=== PATIENT | male | born 1955 | race African-American/Black ===

== ENCOUNTER 2016-08-08 19:03 | Emergency (ER) | payer MEDICARE, OTHER ==
[~2016-08-08] VITALS: Ht 177.8 cm; Wt 71.7 kg
[2016-08-08] MEDS ORDERED: AZITHROMYCIN 250 MG TABLET PO ONE (20:45)
[2016-08-08] MEDS ORDERED: CEFTRIAXONE 500 MG VIAL IM ONE (20:45)
[2016-08-08] MEDS ORDERED: LIDOCAINE HCL 1% 20 ML VIAL ONE (21:40)
[2016-08-08] MEDS ORDERED: CEFTRIAXONE 500 MG VIAL ONE (21:40)
[2016-08-08] MEDS ORDERED: AZITHROMYCIN 250 MG TABLET ONE (21:40)
[2016-08-08 21:58] LABS: *BILIRUBIN,URIN NEGATIVE (NEGATIVE); *BLOOD, URINE NEGATIVE (NEGATIVE); *CLARITY,URINE CLEAR (CLEAR); *COLOR,URINE YELLOW (YELLOW); *KETONES,URINE NEGATIVE (NEGATIVE); *PROTEIN,URINE TRACE (NEGATIVE); LEUKOCYTE ESTERASE ,URINE NEGATIVE (NEGATIVE); NITRITE, URINE NEGATIVE (NEGATIVE); UGLUCOSE NEGATIVE (NEGATIVE)
[2016-08-08 22:06] LABS: BACTERIA,URINE NONE SEEN /HPF (NONE SEEN); RBC,URINE 0-3 /HPF (0-3); SQUAMOUS EPITHELIAL CELL,UR FEW /HPF (NONE SEEN); WBC,URINE 0-3 /HPF (0-3)
[2016-08-08 23:00] VITALS: BP 128/78
--- NOTE | 2016-08-08 23:00 | NUR ---
Pt dc;ed home w/ aci , pt given script for levaquin po.
== END 2016-08-08 23:02 | disposition home or self-care (01) ==
LOC: ER 19:12
DX: N45.1 Epididymitis (principal)
CPT/HCPCS: 76870; 87491; A4663; J0696; J3490; Q0144

== ENCOUNTER 2016-08-17 05:28 | Emergency (ER) | payer MEDICARE, OTHER ==
[~2016-08-17] VITALS: Ht 177.8 cm; Wt 72.6 kg
[2016-08-17] MEDS: IBUPROFEN 600 MG TABLET PO ONE (05:59)
[2016-08-17] MEDS: TDAP DIPH,PERTUSS,TET VAC/PF 0.5 ML DISP.SYRIN IM ONE (06:05)
[2016-08-17] MEDS ORDERED: TDAP DIPH,PERTUSS,TET VAC/PF 0.5 ML DISP.SYRIN IM ONE (06:08)
[2016-08-17] MEDS ORDERED: IBUPROFEN 600 MG TABLET ONE (06:08)
--- NOTE | 2016-08-17 07:09 | NUR ---
Patient discharged to home in stable conditon. Written and verbal after care instructions given. Patient verbalizes understanding of instructions.
[2016-08-17 07:13] VITALS: BP 135/85
== END 2016-08-17 07:09 | disposition home or self-care (01) ==
LOC: ER 05:33
DX: S60.511A Abrasion of right hand, initial encounter (principal); L03.113 Cellulitis of right upper limb; F90.9 Attention-deficit hyperactivity disorder, unspecified type; F10.10 Alcohol abuse, uncomplicated; F17.200 Nicotine dependence, unspecified, uncomplicated; X58.XXXA Exposure to other specified factors, initial encounter; Y93.89 Activity, other specified; Y92.9 Unspecified place or not applicable; Y99.9 Unspecified external cause status
CPT/HCPCS: 90715; A4663

== ENCOUNTER 2016-08-28 08:34 | Emergency (ER) | payer MEDICARE, OTHER ==
[~2016-08-28] VITALS: Ht 180.3 cm; Wt 81.6 kg
--- NOTE | 2016-08-28 09:10 | NUR ---
DR JOHNSON AT THE BEDSIDE FOR EVAL AND EXAM.
[2016-08-28 09:22] VITALS: BP 154/94
--- NOTE | 2016-08-28 09:28 | NUR ---
Patient discharged to home in stable conditon. Written and verbal after care instructions given. Patient verbalizes understanding of instructions.
== END 2016-08-28 09:28 | disposition home or self-care (01) ==
LOC: ER 08:34
DX: L03.113 Cellulitis of right upper limb (principal); R30.0 Dysuria; F17.200 Nicotine dependence, unspecified, uncomplicated
CPT/HCPCS: 99283; A4663

== ENCOUNTER 2016-09-07 09:42 | Emergency (ER) | payer MEDICARE, OTHER ==
[~2016-09-07] VITALS: Ht 177.8 cm; Wt 71.7 kg
[2016-09-07] MEDS ORDERED: ALPRAZOLAM (09:53)
[2016-09-07] MEDS ORDERED: OXYC30TA2 PO (09:53)
[2016-09-07] MEDS ORDERED: SILD100T PO (09:53)
[2016-09-07] MEDS ORDERED: SULF1TAB48 PO (09:54)
[2016-09-07 10:38] VITALS: BP 120/66
--- NOTE | 2016-09-07 10:40 | NUR ---
Patient discharged to home in stable conditon. Written and verbal after care instructions given. Patient verbalizes understanding of instructions.
== END 2016-09-07 10:41 | disposition home or self-care (01) ==
LOC: ER 09:42
DX: N50.819 Testicular pain, unspecified (principal); I10 Essential (primary) hypertension; F17.200 Nicotine dependence, unspecified, uncomplicated
CPT/HCPCS: A4663

== ENCOUNTER 2017-07-23 04:15 | Emergency (ER) | payer MEDICARE, OTHER ==
[~2017-07-23] VITALS: Ht 177.8 cm; Wt 72.6 kg
[~2017-07-23 04:15] MED LIST: ALPRAZOLAM; OXYC30TA2 PO; SILD100T PO; SULF1TAB48 PO
--- NOTE | 2017-07-23 04:30 | NUR ---
PT C/O TESTICULAR PAIN, AND THAT HIS UROLOGIST DOESNT KNOW WHY. UNRELIABLE HISTORIAN, HIS IS UNWILLING TO PROVIDE FURTHER DETAILS.
--- NOTE | 2017-07-23 04:36 | NUR ---
DR JOHNSON, NIKITA MD AT BEDSIDE FOR MSE.
--- NOTE | 2017-07-23 04:45 | NUR ---
PT SLEEPING AND DIFFICULT TO WAKE. STATES HE IS UNABLE TO PROVIDE URINE SAMPLE.
--- NOTE | 2017-07-23 05:01 | NUR ---
RADIOLOGY CALLED FOR [facility].
[2017-07-23 05:13] LABS: *BILIRUBIN,URIN NEGATIVE (NEGATIVE); *BLOOD, URINE NEGATIVE (NEGATIVE); *CLARITY,URINE CLEAR (CLEAR); *COLOR,URINE YELLOW (YELLOW); *KETONES,URINE NEGATIVE (NEGATIVE); *PROTEIN,URINE TRACE (NEGATIVE); *UROBILINOGEN,URINE 0.2 E.U./dl (NORMAL); LEUKOCYTE ESTERASE ,URINE NEGATIVE (NEGATIVE); NITRITE, URINE NEGATIVE (NEGATIVE); UGLUCOSE NEGATIVE (NEGATIVE)
[2017-07-23 05:21] LABS: BACTERIA,URINE NONE SEEN /HPF (NONE SEEN); RBC,URINE NONE SEEN /HPF (0-3); SQUAMOUS EPITHELIAL CELL,UR NONE SEEN /HPF (NONE SEEN); WBC,URINE 0-3 /HPF (0-3)
--- NOTE | 2017-07-23 06:15 | NUR ---
US AT PT BEDSIDE. PT SLEEPING THROUGH US
[2017-07-23] MEDS ORDERED: AZITHROMYCIN 500 MG VIAL IV ONE (06:37)
[2017-07-23] MEDS ORDERED: AZITHROMYCIN 250 MG TABLET ONE (06:39)
[2017-07-23] MEDS ORDERED: CEFTRIAXONE 500 MG VIAL ONE (06:40)
[2017-07-23] MEDS ORDERED: AZITHROMYCIN 250 MG TABLET PO ONE (06:45)
[2017-07-23] MEDS ORDERED: CEFTRIAXONE 500 MG VIAL IM ONE (06:45)
--- NOTE | 2017-07-23 07:02 | NUR ---
Patient discharged to home in stable conditon. Written and verbal after care instructions given. Patient verbalizes understanding of instructions. PT ambulated from ER w/ steady gait. No distress noted. Pt took all personal belongings.
[2017-07-23 07:03] VITALS: BP 156/110
[2017-07-25 08:11] LABS: *GC NAA Negative (Negative); *TRIC.VAG. NAA Negative (Negative)
== END 2017-07-23 07:04 | disposition home or self-care (01) ==
LOC: ER 04:18
DX: N50.819 Testicular pain, unspecified (principal); I10 Essential (primary) hypertension; F17.210 Nicotine dependence, cigarettes, uncomplicated; Z79.891 Long term (current) use of opiate analgesic; Z79.899 Other long term (current) drug therapy
CPT/HCPCS: 76870; 87491; A4663; J0456; J0696; J3490; Q0144

== ENCOUNTER 2017-07-31 03:45 | Emergency (ER) | payer MEDICARE, OTHER ==
[~2017-07-31] VITALS: Ht 177.8 cm; Wt 72.6 kg
--- NOTE | 2017-07-31 04:35 | NUR ---
PT IN BED. MD SHAH AT BEDSIDE.
--- NOTE | 2017-07-31 04:51 | NUR ---
PT IN BED. PT WAS GIVEN URINAL TO OBTAIN A SAMPLE FOR LAB. PT IS RESTING QUIETLY WITH EYES CLOSED. EMPTY URINAL IS IN BED WITH PT.
--- NOTE | 2017-07-31 06:07 | NUR ---
US AT BEDSIDE
[2017-07-31 06:54] LABS: *BILIRUBIN,URIN NEGATIVE (NEGATIVE); *BLOOD, URINE NEGATIVE (NEGATIVE); *CLARITY,URINE CLEAR (CLEAR); *COLOR,URINE YELLOW (YELLOW); *KETONES,URINE NEGATIVE (NEGATIVE); *PROTEIN,URINE TRACE (NEGATIVE); *UROBILINOGEN,URINE 0.2 E.U./dl (NORMAL); LEUKOCYTE ESTERASE ,URINE NEGATIVE (NEGATIVE); NITRITE, URINE NEGATIVE (NEGATIVE); PH,URINE 6.5 (5.0-8.0); UGLUCOSE NEGATIVE (NEGATIVE)
--- NOTE | 2017-07-31 07:01 | NUR ---
REPORT GIVEN TO DEBBIE FUENTES.
[2017-07-31 07:07] LABS: RBC,URINE 0-3 /HPF (0-3)
[2017-07-31 07:08] LABS: BACTERIA,URINE FEW /HPF (NONE SEEN); MUCUS,URINE FEW /LPF (0-FEW); SQUAMOUS EPITHELIAL CELL,UR FEW /HPF (NONE SEEN)
--- NOTE | 2017-07-31 07:33 | NUR ---
[facility] PROVIDEDFOR [facility].
[2017-07-31 07:37] VITALS: BP 148/101
--- NOTE | 2017-07-31 07:44 | NUR ---
Patient discharged to home in stable conditon. Written and verbal after care instructions given. Patient verbalizes understanding of instructions. Patient denies any distress and walks in steady gait.
== END 2017-07-31 07:45 | disposition home or self-care (01) ==
LOC: ER 03:49
DX: N50.819 Testicular pain, unspecified (principal); N43.3 Hydrocele, unspecified; I10 Essential (primary) hypertension; F17.210 Nicotine dependence, cigarettes, uncomplicated; Z79.891 Long term (current) use of opiate analgesic; Z79.899 Other long term (current) drug therapy
CPT/HCPCS: 76870; 87086; A4663

== ENCOUNTER 2017-10-25 01:33 | Emergency (ER) | payer MEDICARE, OTHER ==
[~2017-10-25] VITALS: Ht 177.8 cm; Wt 72.6 kg
--- NOTE | 2017-10-25 02:07 | NUR ---
Dr. Henriquez at bedside for MSE.
--- NOTE | 2017-10-25 02:37 | NUR ---
Pt out of ER for CT.
--- NOTE | 2017-10-25 02:46 | NUR ---
Pt back to ER from CT.
--- NOTE | 2017-10-25 03:37 | NUR ---
Patient discharged to home in stable conditon. Written and verbal after care instructions given. Patient verbalizes understanding of instructions. Pt ambulated out of ER with steady gait, no acute signs of distress, VSS, all belongings taken.
[2017-10-25 03:58] VITALS: BP 176/106
== END 2017-10-25 03:40 | disposition home or self-care (01) ==
LOC: ER 01:37
DX: S00.03XA Contusion of scalp, initial encounter (principal); I10 Essential (primary) hypertension; Z79.891 Long term (current) use of opiate analgesic; Z79.01 Long term (current) use of anticoagulants; Z79.899 Other long term (current) drug therapy; Y04.0XXA Assault by unarmed brawl or fight, initial encounter; Y93.89 Activity, other specified; Y92.89 Other specified places as the place of occurrence of the external cause; Y99.8 Other external cause status
CPT/HCPCS: 70450; 99284; A4663

== ENCOUNTER 2017-11-07 17:03 | Inpatient (IN) | payer MEDICARE, OTHER ==
[~2017-11-07] VITALS: Ht 177.8 cm; Wt 78.2 kg
[2017-11-07] MEDS ORDERED: IV NORMAL SALINE 1000 ML BAG IV ONE (17:15)
[2017-11-07 17:26] LABS: BASOPHILS % (AUTO) 0.7 % (0.0-2.0); EOSINOPHILS # (AUTO) 0.1 K/uL (0.0-0.7); EOSINOPHILS % (AUTO) 1.3 % (0.0-7.0); HEMATOCRIT 43.6 % (36.7-47.1); HEMOGLOBIN 14.4 g/dL (12.5-16.3); LYMPHOCYTES # (AUTO) 1.5 K/uL (20.0-40.0); LYMPHOCYTES % (AUTO) 36.9 % (20.5-51.5); MEAN CORPUSCULAR HEMOGLOBIN 30.5 uug (23.8-33.4); MEAN CORPUSCULAR HGB CONC 33 g/dL (32.5-36.3); MEAN CORPUSCULAR VOLUME 92.2 fL (73.0-96.2); MONOCYTES # (AUTO) 0.4 K/uL (2.0-10.0); MONOCYTES % (AUTO) 8.9 % (0.0-11.0); NEUTROPHILS # (AUTO) 2.1 K/uL (1.8-8.9); NEUTROPHILS % (AUTO) 52.2 % (38.5-71.5); PLATELET COUNT (AUTO) 279 K/uL (152-348); RED BLOOD CELL COUNT(AUTO) 4.73 MIL/uL (4.06-5.63)
--- NOTE | 2017-11-07 17:27 | NUR ---
PT IS IN ROOM #1B. DR JOHNSON EVALUATED THE PT.
[2017-11-07 17:34] LABS: CREATININE 1.2 mg/dL (0.6-1.3); POTASSIUM 3.4 mmol/L (3.5-5.1)
[2017-11-07 17:39] LABS: BILIRUBIN,DIRECT 0.1 mg/dL (0.0-0.2); BILIRUBIN,TOTAL 0.5 mg/dL (0.2-1.0); TOTAL PROTEIN, SERUM 6.8 g/dL (6.4-8.2)
[2017-11-07] MEDS ORDERED: ALPR2TAB7 PO (18:02)
[2017-11-07] MEDS ORDERED: ACETAMINOPHEN 325 MG TABLET PO PRN (18:30)
[2017-11-07] MEDS ORDERED: MORPHINE SULFATE 2 MG/1 ML DISP.SYRIN IV PRN (18:30)
[2017-11-07] MEDS ORDERED: POTASSIUM CHLORIDE 20 MEQ TAB.PRT.SR PO ONE (18:30)
[2017-11-07] MEDS ORDERED: Z GUARD REMEDY PASTE 57 GM TUBE TOP PRN (18:30)
[2017-11-07] MEDS ORDERED: MAGNESIUM HYDROXIDE 30 ML LIQUID UDC PO PRN (18:30)
[2017-11-07] MEDS ORDERED: HYDROCODONE/APAP 5-325MG TABLET PO PRN (18:30)
[2017-11-07] MEDS ORDERED: ONDANSETRON 4 MG/2 ML VIAL IV PRN (18:30)
--- NOTE | 2017-11-07 19:02 | NUR ---
REPORT GIVEN TO CURRICULUM COORDINATOR RN.
--- NOTE | 2017-11-07 19:14 | NUR ---
ASSUMED CARE OF PATIENT. PATIENT IN BED, NO ACUTE DISTRESS NOTED. AWAITING INPATIENT ADMISSION AT THIS TIME. VSS. US AT BEDSIDE.
--- NOTE | 2017-11-07 19:26 | NUR ---
Report given to Bhargavi LEWIS on telemetry
--- NOTE | 2017-11-07 19:28 | NUR ---
Pt. admitted to Telemetry , under care of Dr. Rhodes. Dx: Syncope Belongs List completed
--- NOTE | 2017-11-07 19:45 | NUR ---
PT ARRIVED ON TELE FLOOR VIA GURNEY. NO COMPLAINTS AT THIS TIME. PT PLACED ON TELE MONITORING- NSR. ORIENTED TO UNIT AND USE OF CALL LIGHT. BELONGING LIST COMPLETED. V/S WNL.
[2017-11-07 20:00] VITALS: BP 130/90
[2017-11-07 23:51] VITALS: BP 141/87
--- NOTE | 2017-11-08 00:22 | NUR ---
PT RESTING IN BED. NO PAIN, C/P, SOB, N/V. PT NSR ON TELE MONITORING.
[2017-11-08 03:48] VITALS: BP 142/96
--- NOTE | 2017-11-08 04:21 | NUR ---
PT ASLEEP IN BED. NO COMPLAINTS AT THIS TIME. NSR ON TELE MONITORING.
[2017-11-08 06:32] LABS: BASOPHILS % (AUTO) 0.7 % (0.0-2.0); EOSINOPHILS # (AUTO) 0.2 K/uL (0.0-0.7); EOSINOPHILS % (AUTO) 3.5 % (0.0-7.0); HEMATOCRIT 43.2 % (36.7-47.1); HEMOGLOBIN 14.2 g/dL (12.5-16.3); LYMPHOCYTES # (AUTO) 1.7 K/uL (20.0-40.0); LYMPHOCYTES % (AUTO) 38.8 % (20.5-51.5); MEAN CORPUSCULAR HEMOGLOBIN 30.4 uug (23.8-33.4); MEAN CORPUSCULAR HGB CONC 33 g/dL (32.5-36.3); MEAN CORPUSCULAR VOLUME 92.6 fL (73.0-96.2); MONOCYTES # (AUTO) 0.5 K/uL (2.0-10.0); MONOCYTES % (AUTO) 11.2 % (0.0-11.0); NEUTROPHILS % (AUTO) 45.8 % (38.5-71.5); PLATELET COUNT (AUTO) 253 K/uL (152-348); RED BLOOD CELL COUNT(AUTO) 4.66 MIL/uL (4.06-5.63); WHITE BLOOD COUNT (AUTO) 4.3 K/uL (3.6-10.2)
[2017-11-08 06:46] LABS: CREATININE 1.1 mg/dL (0.6-1.3); MAGNESIUM 2.2 mg/dL (1.8-2.4); PHOSPHOROUS 3.9 mg/dL (2.5-4.9); POTASSIUM 4.6 mmol/L (3.5-5.1)
[2017-11-08 06:55] LABS: THYROID STIMULATING HORMONE 0.635 mIU/mL (0.358-3.740)
--- NOTE | 2017-11-08 07:40 | NUR ---
Received pt sleeping in bed, no immediate s/s of SOB, pain, distress or discomfort. Pt is easily arousable to name.
--- NOTE | 2017-11-08 10:00 | NUR ---
Pt refused PT evaluation and stated if PT could come back after lunch.
[2017-11-08 11:56] VITALS: BP 144/84
--- NOTE | 2017-11-08 14:00 | NUR ---
Pt was able to ambulate around the hallway with PT. No immediate s/s of pain, distress or discomfort
[2017-11-08 16:15] VITALS: BP 126/95
--- NOTE | 2017-11-08 18:53 | NUR ---
Pt has been compliant with nursing care and medication. No immediate s/s of SOB, pain, distress or discomfort at this time
[2017-11-08 19:38] VITALS: BP 154/85
[2017-11-09 03:40] VITALS: BP 153/98
--- NOTE | 2017-11-09 06:06 | NUR ---
Patient slept through the night. Dr Schmidt saw the patient last night and DC'd telemetry. BP slightly elevated and states he has pain 7/10 but refuses pain medication when offered. Patient just wants the fan on in his room and to go to sleep. No s/s distress noted. All needs attended to. Urine sample collected and sent to lab.
[2017-11-09 06:34] LABS: BASOPHILS % (AUTO) 0.5 % (0.0-2.0); EOSINOPHILS # (AUTO) 0.1 K/uL (0.0-0.7); EOSINOPHILS % (AUTO) 3.1 % (0.0-7.0); HEMATOCRIT 46.6 % (36.7-47.1); HEMOGLOBIN 15.5 g/dL (12.5-16.3); LYMPHOCYTES # (AUTO) 1.7 K/uL (20.0-40.0); LYMPHOCYTES % (AUTO) 36.8 % (20.5-51.5); MEAN CORPUSCULAR HEMOGLOBIN 30.6 uug (23.8-33.4); MEAN CORPUSCULAR HGB CONC 33 g/dL (32.5-36.3); MEAN CORPUSCULAR VOLUME 92.1 fL (73.0-96.2); MONOCYTES # (AUTO) 0.4 K/uL (2.0-10.0); MONOCYTES % (AUTO) 9.1 % (0.0-11.0); NEUTROPHILS # (AUTO) 2.3 K/uL (1.8-8.9); NEUTROPHILS % (AUTO) 50.5 % (38.5-71.5); PLATELET COUNT (AUTO) 265 K/uL (152-348); RED BLOOD CELL COUNT(AUTO) 5.05 MIL/uL (4.06-5.63); WHITE BLOOD COUNT (AUTO) 4.6 K/uL (3.6-10.2)
[2017-11-09 06:48] LABS: *BILIRUBIN,URIN NEGATIVE (NEGATIVE); *BLOOD, URINE NEGATIVE (NEGATIVE); *CLARITY,URINE CLEAR (CLEAR); *COLOR,URINE YELLOW (YELLOW); *KETONES,URINE NEGATIVE (NEGATIVE); *PROTEIN,URINE NEGATIVE (NEGATIVE); *UROBILINOGEN,URINE 0.2 E.U./dl (NORMAL); LEUKOCYTE ESTERASE ,URINE NEGATIVE (NEGATIVE); NITRITE, URINE NEGATIVE (NEGATIVE); UGLUCOSE NEGATIVE (NEGATIVE)
[2017-11-09 06:58] LABS: BACTERIA,URINE FEW /HPF (NONE SEEN); RBC,URINE 0-3 /HPF (0-3); SQUAMOUS EPITHELIAL CELL,UR FEW /HPF (NONE SEEN); WBC,URINE 0-3 /HPF (0-3)
--- NOTE | 2017-11-09 07:27 | NUR ---
Received pt sleeping on his right side, no immediate s/s of SOB, pain, distress or discomfort noted.
[2017-11-09 08:31] VITALS: BP 166/113
[2017-11-09] MEDS ORDERED: LISINOPRIL 5 MG TABLET PO SCH ×2 (09:00)
[2017-11-09] MEDS ORDERED: LISINOPRIL 5 MG TABLET PO ONE (09:15)
[2017-11-09] MEDS ORDERED: LISI10TA5 PO (11:38)
[2017-11-09 11:45] VITALS: BP 133/95
--- NOTE | 2017-11-09 15:35 | NUR ---
Pt has been compliant with medications and nursing care. Pt has discharge orders from [facility]OB[facility]. Pt is in stable condition, with no immediate s/s of SOB, pain, distress or discomfort. Pt has signed all discharge papers and personal belonging list in which every item has been accounted for. Pharmacist was called to have a consultation in regards to the pt.'s new BP medication. Taxi voucher is being provided to the pt. Pt is now taking a shower before the taxi comes to pick him up.
--- NOTE | 2017-11-09 16:35 | NUR ---
Pt has left the unit via wheelchair accompanied by APPLIANCE MECHANIC. No SOB, pain, distress or discomfort noted. All personal belongings and discharge papers with the pt. Pt is leaving the hospital via taxi.
[2017-11-10] MEDS ORDERED: LISINOPRIL 10 MG TABLET PO SCH (09:00)
== END 2017-11-09 16:30 | disposition home or self-care (01) | DRG 641 ==
LOC: ER 17:05 → TELE 19:18 → MED 11-08 21:11
PROVIDERS: ADMIT Internal Medicine; ATTEND Registered Nurse
DX: E86.0 Dehydration (principal); I50.30 Unspecified diastolic (congestive) heart failure; X30.XXXA Exposure to excessive natural heat, initial encounter; Y92.019 Unspecified place in single-family (private) house as the place of occurrence of the external cause; F41.9 Anxiety disorder, unspecified; E87.6 Hypokalemia; Z79.899 Other long term (current) drug therapy; I11.0 Hypertensive heart disease with heart failure; F17.210 Nicotine dependence, cigarettes, uncomplicated
CPT/HCPCS: 36415; 70030-TC; 70450; 71045; 83735; 84100; 84443; 85025; 85730; 93005; 93307; 93880; A4663; J7030

== ENCOUNTER 2018-05-28 00:33 | Emergency (ER) | payer MEDICARE, OTHER ==
[~2018-05-28] VITALS: Ht 177.8 cm; Wt 72.6 kg
[~2018-05-28 00:33] MED LIST changes: +ALPR2TAB7 PO; -ALPRAZOLAM; +LISI10TA5 PO; -OXYC30TA2 PO; -SILD100T PO; -SULF1TAB48 PO
--- NOTE | 2018-05-28 00:40 | NUR ---
Patient discharged to home in stable conditon. Written and verbal after care instructions given. Patient verbalizes understanding of instructions.
--- NOTE | 2018-05-28 00:50 | NUR ---
PATIENT WAS MSE BY DR CALHOUN IN ROOM 05A
[2018-05-28] MEDS ORDERED: SULFAMETH/TRIMETH 800/160 MG TABLET ONE (01:00)
[2018-05-28] MEDS ORDERED: SULFAMETH/TRIMETH 800/160 MG TABLET PO ONE (01:00)
[2018-05-28 01:19] VITALS: BP 148/85
== END 2018-05-28 01:20 | disposition home or self-care (01) ==
LOC: ER 00:35
DX: N39.0 Urinary tract infection, site not specified (principal); I10 Essential (primary) hypertension; F17.200 Nicotine dependence, unspecified, uncomplicated; Z79.899 Other long term (current) drug therapy
CPT/HCPCS: A4663

== ENCOUNTER 2018-05-28 23:35 | Emergency (ER) | payer MEDICARE, OTHER ==
[~2018-05-28] VITALS: Ht 177.8 cm; Wt 72.6 kg
--- NOTE | 2018-05-29 01:16 | NUR ---
Pt ambulates to ER with c/o med refill for antibiotic for UTI. Pt was seen here earlier for UTI S/S & was given Bactrim which is "not working"
[2018-05-29] MEDS ORDERED: PHENAZOPYRIDINE HCL 100 MG TABLET PO ONE (01:45)
[2018-05-29] MEDS ORDERED: PHENAZOPYRIDINE HCL 100 MG TABLET ONE (01:48)
--- NOTE | 2018-05-29 01:55 | NUR ---
Provided pt sandwich & drink.
--- NOTE | 2018-05-29 02:49 | NUR ---
Patient given written and verbal discharge instructions. Patient verbalizes understanding of instructions. Patient is ambulatory with steady gait. Refuses offer of [facility] placement. Patient given list of available shelters in surrounding area.
[2018-05-29 02:50] VITALS: BP 158/91
== END 2018-05-29 02:51 | disposition home or self-care (01) ==
LOC: ER 23:36
DX: R30.0 Dysuria (principal); I10 Essential (primary) hypertension; F17.200 Nicotine dependence, unspecified, uncomplicated; Z79.899 Other long term (current) drug therapy
CPT/HCPCS: A4663

== ENCOUNTER 2018-05-31 18:17 | Emergency (ER) | payer MEDICARE, OTHER ==
[~2018-05-31] VITALS: Ht 177.8 cm; Wt 71.7 kg
[2018-05-31] MEDS ORDERED: HYDR-3326 PO (18:37)
[2018-05-31] MEDS ORDERED: AMPH15TA2 PO (18:37)
[2018-05-31] MEDS: HYDROCODONE/APAP 5-325MG TABLET PO ONE (20:45)
[2018-05-31] MEDS: SULFAMETH/TRIMETH 800/160 MG TABLET PO ONE (20:45)
[2018-05-31] MEDS ORDERED: HYDROCODONE/APAP 5-325MG TABLET ONE (20:53)
[2018-05-31] MEDS ORDERED: SULFAMETH/TRIMETH 800/160 MG TABLET ONE (20:53)
--- NOTE | 2018-05-31 21:10 | NUR ---
Patient discharged to home in stable conditon. Written and verbal after care instructions given. Patient verbalizes understanding of instructions. All belongings taken by patient. Homeless patient waiver form signed. Patient ambulated out of ER with stable gait.
[2018-05-31 21:16] VITALS: BP 128/74
== END 2018-05-31 21:16 | disposition home or self-care (01) ==
LOC: ER 18:21
DX: S80.212A Abrasion, left knee, initial encounter (principal); L08.9 Local infection of the skin and subcutaneous tissue, unspecified; I11.0 Hypertensive heart disease with heart failure; I50.9 Heart failure, unspecified; F17.200 Nicotine dependence, unspecified, uncomplicated; Z79.891 Long term (current) use of opiate analgesic; Z79.899 Other long term (current) drug therapy; X58.XXXA Exposure to other specified factors, initial encounter; Y93.89 Activity, other specified; Y92.89 Other specified places as the place of occurrence of the external cause; Y99.8 Other external cause status
CPT/HCPCS: A4663

== ENCOUNTER 2018-06-14 23:33 | Emergency (ER) | payer MEDICARE, OTHER ==
[~2018-06-14] VITALS: Ht 177.8 cm; Wt 71.7 kg
[~2018-06-14 23:33] MED LIST changes: +AMPH15TA2 PO; +HYDR-3326 PO
--- NOTE | 2018-06-15 01:00 | NUR ---
Patient ambulated with stable gait. AAxO x 4. Speech clear, and speaks in complete sentences. No neuro deficits noted. Respiratory even and unlabored. No SOB, no cough. No cardiovascular distress noted, all pulses palpable. Patient came c/o pain only during urination. Pain 8/10. Patient in bed at lowest position. Side rails up x2. Call light within reach. Fall precautions implemented per protocol.
--- NOTE | 2018-06-15 01:17 | NUR ---
Water given to patient despite CT that was ordered. ERMD had spoken to patient and patient is very adamant on drinking a cup of water. ER MD explained risks and patient aware.
[2018-06-15 01:39] LABS: BASOPHILS % (AUTO) 1.1 % (0.0-2.0); EOSINOPHILS # (AUTO) 0.2 K/uL (0.0-0.7); EOSINOPHILS % (AUTO) 4.9 % (0.0-7.0); HEMATOCRIT 35.2 % (36.7-47.1); HEMOGLOBIN 11.6 g/dL (12.5-16.3); LYMPHOCYTES # (AUTO) 1.8 K/uL (20.0-40.0); LYMPHOCYTES % (AUTO) 45.1 % (20.5-51.5); MEAN CORPUSCULAR HEMOGLOBIN 30.5 uug (23.8-33.4); MEAN CORPUSCULAR HGB CONC 33 g/dL (32.5-36.3); MEAN CORPUSCULAR VOLUME 92.1 fL (73.0-96.2); MONOCYTES # (AUTO) 0.5 K/uL (2.0-10.0); MONOCYTES % (AUTO) 12.2 % (0.0-11.0); NEUTROPHILS # (AUTO) 1.5 K/uL (1.8-8.9); NEUTROPHILS % (AUTO) 36.7 % (38.5-71.5); PLATELET COUNT (AUTO) 309 K/uL (152-348); RED BLOOD CELL COUNT(AUTO) 3.82 MIL/uL (4.06-5.63)
[2018-06-15 01:49] LABS: CREATININE 1.3 mg/dL (0.6-1.3); POTASSIUM 3.5 mmol/L (3.5-5.1)
[2018-06-15 01:54] LABS: BILIRUBIN,DIRECT 0.1 mg/dL (0.0-0.2); BILIRUBIN,TOTAL 0.2 mg/dL (0.2-1.0); TOTAL PROTEIN, SERUM 6.4 g/dL (6.4-8.2)
[2018-06-15 02:09] LABS: *BILIRUBIN,URIN 1+ (NEGATIVE); *BLOOD, URINE NEGATIVE (NEGATIVE); *CLARITY,URINE CLEAR (CLEAR); *COLOR,URINE YELLOW (YELLOW); *KETONES,URINE 1+ (NEGATIVE); *UROBILINOGEN,URINE 0.2 E.U./dl (NORMAL); LEUKOCYTE ESTERASE ,URINE NEGATIVE (NEGATIVE); NITRITE, URINE NEGATIVE (NEGATIVE); PH,URINE 5.5 (5.0-8.0); UGLUCOSE NEGATIVE (NEGATIVE)
[2018-06-15 02:11] LABS: BACTERIA,URINE NONE SEEN /HPF (NONE SEEN); RBC,URINE 0-3 /HPF (0-3); SQUAMOUS EPITHELIAL CELL,UR FEW /HPF (NONE SEEN)
[2018-06-15] MEDS ORDERED: MORPHINE SULFATE 4 MG/1 ML DISP.SYRIN ONE (02:12)
[2018-06-15] MEDS ORDERED: MORPHINE SULFATE 4 MG/1 ML DISP.SYRIN IM ONE (02:15)
[2018-06-15] MEDS ORDERED: CEFTRIAXONE 500 MG VIAL IM ONE (03:15)
[2018-06-15] MEDS ORDERED: AZITHROMYCIN 250 MG TABLET PO ONE (03:15)
[2018-06-15] MEDS ORDERED: AZITHROMYCIN 250 MG TABLET ONE (03:21)
[2018-06-15] MEDS ORDERED: LIDOCAINE HCL 1% 20 ML VIAL ONE (03:22)
[2018-06-15] MEDS ORDERED: CEFTRIAXONE 500 MG VIAL ONE (03:22)
--- NOTE | 2018-06-15 03:33 | NUR ---
Patient discharged to home in stable conditon. Written and verbal after care instructions given. Patient verbalizes understanding of instructions. Patient ambulating with stable gait.
[2018-06-15 03:34] VITALS: BP 110/78
[2018-06-18 07:10] LABS: *GC NAA Negative (Negative); *TRIC.VAG. NAA Negative (Negative)
== END 2018-06-15 03:35 | disposition home or self-care (01) ==
LOC: ER 23:33
DX: S09.90XA Unspecified injury of head, initial encounter (principal); M54.5 Low back pain; R30.0 Dysuria; K62.5 Hemorrhage of anus and rectum; I10 Essential (primary) hypertension; F17.200 Nicotine dependence, unspecified, uncomplicated; Z79.891 Long term (current) use of opiate analgesic; Z79.899 Other long term (current) drug therapy; W22.8XXA Striking against or struck by other objects, initial encounter; Y93.89 Activity, other specified; Y92.89 Other specified places as the place of occurrence of the external cause; Y99.8 Other external cause status
CPT/HCPCS: 36415; 70450; 71045; 72100; 80048; 80076; 81001; 85025; 85730; 86850; 86900; 86901; 87086; 87491; 96372 ×2; 99284; J0696; J2270; J3490; A4663; Q0144

== ENCOUNTER 2018-08-14 18:12 | Inpatient (IN) | payer MEDICARE, OTHER ==
[~2018-08-14] VITALS: Ht 177.8 cm; Wt 68.0 kg
--- NOTE | 2018-08-14 19:07 | NUR ---
SHIFT REPORT GIVEN TO JEAN Dover RN.
--- NOTE | 2018-08-14 19:22 | NUR ---
Dr. Valencia at bedside for MSE.
[2018-08-14] MEDS ORDERED: ASPIRIN 325 MG TABLET PO ONE (19:30)
[2018-08-14] MEDS ORDERED: NITROGLYCERIN 0.4 MG/TAB BOTTLE SL ONE ×2 (19:30→19:39)
--- NOTE | 2018-08-14 19:35 | NUR ---
Xray at bedside.
[2018-08-14] MEDS ORDERED: ASPIRIN 325 MG TABLET ONE (19:39)
[2018-08-14 19:46] LABS: BASOPHILS % (AUTO) 1.3 % (0.0-2.0); EOSINOPHILS # (AUTO) 0.1 K/uL (0.0-0.7); EOSINOPHILS % (AUTO) 3.5 % (0.0-7.0); HEMATOCRIT 39.3 % (36.7-47.1); HEMOGLOBIN 12.9 g/dL (12.5-16.3); LYMPHOCYTES # (AUTO) 1.4 K/uL (20.0-40.0); LYMPHOCYTES % (AUTO) 40.6 % (20.5-51.5); MEAN CORPUSCULAR HGB CONC 33 g/dL (32.5-36.3); MEAN CORPUSCULAR VOLUME 91.7 fL (73.0-96.2); MONOCYTES # (AUTO) 0.3 K/uL (2.0-10.0); MONOCYTES % (AUTO) 9.5 % (0.0-11.0); NEUTROPHILS # (AUTO) 1.6 K/uL (1.8-8.9); NEUTROPHILS % (AUTO) 45.1 % (38.5-71.5); PLATELET COUNT (AUTO) 246 K/uL (152-348); RED BLOOD CELL COUNT(AUTO) 4.28 MIL/uL (4.06-5.63); WHITE BLOOD COUNT (AUTO) 3.6 K/uL (3.6-10.2)
--- NOTE | 2018-08-14 19:51 | NUR ---
Pt states chestpain still the same 11/30, administered 2nd dose of nitroglycerin. 152/101 BP.
[2018-08-14 20:00] LABS: POTASSIUM 3.8 mmol/L (3.5-5.1)
--- NOTE | 2018-08-14 20:05 | NUR ---
Pt states chestpain is feeling better, refuses 3rd dose of nitroglycerin.
[2018-08-14 20:13] LABS: BILIRUBIN,DIRECT 0.2 mg/dL (0.0-0.2); BILIRUBIN,TOTAL 0.5 mg/dL (0.2-1.0); TOTAL PROTEIN, SERUM 7.1 g/dL (6.4-8.2)
--- NOTE | 2018-08-14 20:37 | NUR ---
Pt sleeping in bed, no acute signs of distress.
[2018-08-14] MEDS ORDERED: NITROGLYCERIN OINT 1 GM PACKET TP ONE ×2 (21:22→21:30)
--- NOTE | 2018-08-14 22:06 | NUR ---
Called [facility] to page Jovita Weller NP.
--- NOTE | 2018-08-14 22:24 | NUR ---
Called [facility] to repage Jovita Weller NP.
--- NOTE | 2018-08-14 23:10 | NUR ---
Dr. Valencia on panel call with Dr. Deepak Littlejohn. Pt accepted for admission to [facility], Diagnosis: Chest Pain.
--- NOTE | 2018-08-14 23:21 | NUR ---
Report given to Shashi LEWIS Tele.
--- NOTE | 2018-08-14 23:30 | NUR ---
report from ER nurse JEAN SIDDIQUI was received, all information noted, all questions were answered. Room is ready for the patient. Charge nurse was updated.
[2018-08-15] VITALS (7 sets, daily range): BP systolic 115–158; BP diastolic 72–96
--- NOTE | 2018-08-15 00:05 | NUR ---
Patient arrived on the unit at 0000, drowsy, easily arousable. Patient history was obtained. patient is agitated, oriented x3. Patient is demanding food and shower. Increasingly angry. Will continue to monitor.
--- NOTE | 2018-08-15 00:36 | NUR ---
Patient is becoming very angry, swearing at staff, demanding food. Refused to change into a gown and refused tele monitor. Dr Littlejohn was notified that patient is on the unit and awaiting orders.
--- NOTE | 2018-08-15 01:10 | NUR ---
Dr Annetta BIRCH to give food and drinks to the patient. Patient ate a sandwich and drank 3 cups of juice. Allowed to be connected to the clinical safety specialist. Fell asleep. Comfort and safety provided. Sinus rhythm on the monitor.
[2018-08-15] MEDS ORDERED: ACETAMINOPHEN 325 MG TABLET PO PRN (02:15)
[2018-08-15] MEDS ORDERED: ONDANSETRON 4 MG/2 ML VIAL IV PRN (02:15)
[2018-08-15] MEDS ORDERED: ZOLPIDEM 5 MG TABLET PO PRN (02:15)
[2018-08-15] MEDS ORDERED: MORPHINE SULFATE 2 MG/1 ML DISP.SYRIN IV PRN (02:15)
[2018-08-15] MEDS: NITROGLYCERIN OINT 1 GM PACKET TP SCH ×4 (03:03→17:38)
--- NOTE | 2018-08-15 06:53 | NUR ---
patient slept well through the night. Good appetite. Mood is improving. Denies chest pain. Sinus on monitor. Comfort and safety provided.
[2018-08-15 07:43] LABS: THYROID STIMULATING HORMONE 0.179 mIU/mL (0.358-3.740)
--- NOTE | 2018-08-15 07:51 | NUR ---
Pt.sleeping,no s/s of distress or pain noted.
[2018-08-15] MEDS ORDERED: CARVEDILOL 3.125 MG TABLET PO SCH (08:00)
[2018-08-15] MEDS: ASPIRIN EC 81 MG TABLET.DR PO SCH (08:23)
[2018-08-15] MEDS: ENOXAPARIN SODIUM 40 MG/0.4 ML DISP.SYRIN SQ SCH (08:24)
--- NOTE | 2018-08-15 12:07 | NUR ---
Pt.was seen by
--- NOTE | 2018-08-15 13:20 | NUR ---
Pt.was seen by .
--- NOTE | 2018-08-15 15:15 | NUR ---
Pt.sleeping, no s/s of distress or pain noted.
--- NOTE | 2018-08-15 18:10 | NUR ---
Pt.eating dinner,watching TV,denies any CP @ time.
--- NOTE | 2018-08-15 20:19 | NUR ---
Patient was received from the day shift nurse. CTA of coronary arteries with contrast is scheduled for tomorrow. NPO after midnight. Patient is asleep, cooperative, AOx4. Comfort and safety provided.
[2018-08-15] MEDS: ATORVASTATIN 20 MG TABLET PO SCH (21:22)
[2018-08-15] MEDS: METOPROLOL TARTRATE 25 MG TABLET PO SCH (21:24)
--- NOTE | 2018-08-15 22:00 | NUR ---
Consents were signed for CTA with contrast. Patient refused to discuss procedure. reported that procedure was explained to him earlier.
[2018-08-16] MEDS: NITROGLYCERIN OINT 1 GM PACKET TP SCH ×4 (00:06→17:37)
[2018-08-16 00:12] VITALS: BP 147/91
--- NOTE | 2018-08-16 00:20 | NUR ---
Patient was put on NPO, food and drink were removed from the room. Patient is asleep. No acute distress signs. Comfort and safety provided
[2018-08-16 05:46] VITALS: BP 142/102
--- NOTE | 2018-08-16 07:09 | NUR ---
patient had an EKG and a blood draw in the morning. Slept well through the night. NPO since midnight. COmfort and safety provided.
[2018-08-16 07:48] LABS: BASOPHILS % (AUTO) 0.4 % (0.0-2.0); EOSINOPHILS # (AUTO) 0.2 K/uL (0.0-0.7); EOSINOPHILS % (AUTO) 3.3 % (0.0-7.0); HEMATOCRIT 37.8 % (36.7-47.1); HEMOGLOBIN 12.5 g/dL (12.5-16.3); LYMPHOCYTES # (AUTO) 1.2 K/uL (20.0-40.0); LYMPHOCYTES % (AUTO) 26.6 % (20.5-51.5); MEAN CORPUSCULAR HEMOGLOBIN 30.2 uug (23.8-33.4); MEAN CORPUSCULAR HGB CONC 33 g/dL (32.5-36.3); MEAN CORPUSCULAR VOLUME 91.2 fL (73.0-96.2); MONOCYTES # (AUTO) 0.6 K/uL (2.0-10.0); MONOCYTES % (AUTO) 12.9 % (0.0-11.0); NEUTROPHILS # (AUTO) 2.6 K/uL (1.8-8.9); NEUTROPHILS % (AUTO) 56.8 % (38.5-71.5); PLATELET COUNT (AUTO) 247 K/uL (152-348); RED BLOOD CELL COUNT(AUTO) 4.15 MIL/uL (4.06-5.63); WHITE BLOOD COUNT (AUTO) 4.5 K/uL (3.6-10.2)
[2018-08-16 07:56] LABS: MAGNESIUM 2.1 mg/dL (1.8-2.4); PHOSPHOROUS 3.3 mg/dL (2.5-4.9); POTASSIUM 4.1 mmol/L (3.5-5.1)
[2018-08-16 08:00] VITALS: BP 144/97
--- NOTE | 2018-08-16 08:30 | NUR ---
Patient been pick up attendant by ambulance services to be taken to [facility] for CT angio with contrast schedule for 0900. Report given to customs compliance specialist. pt. left with RAC G20 c.d.i. AAOX4. vitals stable no c/of pain.
[2018-08-16] MEDS: ASPIRIN EC 81 MG TABLET.DR PO SCH (09:00)
[2018-08-16] MEDS: ENOXAPARIN SODIUM 40 MG/0.4 ML DISP.SYRIN SQ SCH (09:00)
[2018-08-16] MEDS: METOPROLOL TARTRATE 25 MG TABLET PO SCH ×2 (09:00→20:45)
--- NOTE | 2018-08-16 12:00 | NUR ---
both morning and noon medications not administered pt. still out of the unit as reported procedure delayed at [facility].
--- NOTE | 2018-08-16 13:04 | NUR ---
patient back from [facility] vitals stable. no c/of pain.
[2018-08-16 16:00] VITALS: BP 150/90
[2018-08-16 19:15] VITALS: BP 148/94
--- NOTE | 2018-08-16 19:30 | NUR ---
PATIENT RECEIVED LYING IN BED. NO C/O CHEST PAIN AND NO PAIN AT THIS TIME. A/OX4. BED IN LOWEST POSITION. SIDE RAILS UP X2. Addendum: 08/16/18 at 2023 by ANUJ QUINTANA RN PATIENT ON TELE MONITOR. NORMAL SINUS RHYTHM 66.
[2018-08-16] MEDS: ATORVASTATIN 20 MG TABLET PO SCH (20:44)
[2018-08-16 23:44] VITALS: BP 148/90
[2018-08-17] MEDS: NITROGLYCERIN OINT 1 GM PACKET TP SCH ×4 (00:12→17:13)
[2018-08-17 03:21] VITALS: BP 161/94
--- NOTE | 2018-08-17 06:25 | NUR ---
PATIENT INTERMITTENTLY SLEEPING IN BED. NO COMPLAINTS OF PAIN OR ANY DISCOMFORT. MEDICATION ADMINSTERED ORDERED. COMFORT MEASURES PROVIDED.
--- NOTE | 2018-08-17 08:00 | NUR ---
PATIENT IS AWAKE ALERT AND ORIENTED DENIES PAIN OR DISCOMFORTS AT THIS TIME REMAIN ON TELE MONITORING WITH NO ECTOPY AT THIS TIME CALL LIGHTS AND PERSONAL BELONGINGS PLACED WITHIN EASY REACH MADE COMFORTABLE AND WILL CONTINUE TO OBSERVE.
[2018-08-17] MEDS: ASPIRIN EC 81 MG TABLET.DR PO SCH (09:16)
[2018-08-17] MEDS: METOPROLOL TARTRATE 25 MG TABLET PO SCH (09:16)
[2018-08-17] MEDS: ENOXAPARIN SODIUM 40 MG/0.4 ML DISP.SYRIN SQ SCH (09:18)
[2018-08-17 11:18] VITALS: BP 141/89
[2018-08-17 15:20] VITALS: BP 142/94
--- NOTE | 2018-08-17 17:37 | NUR ---
NEW ORDERS NOTED TO DISCHARGE PATIENT TO [facility] PATIENT AWARE AND HE IS SELF RESPONSIBLE AND THE FIRST AVAILABLE AMBULANCE IS 1944 TODAY
--- NOTE | 2018-08-17 18:30 | NUR ---
CALLED [facility] AND REPORT GIVEN TO JESU LEWIS FOR CONTINUING CARE.PATIENT AWARE AND SIGNED HIS DISCHARGE PAPERS.
[2018-08-17 18:33] VITALS: BP 140/92
[2018-08-17 19:14] VITALS: BP 123/88
[2018-08-17 20:41] VITALS: BP 131/85
== END 2018-08-17 20:00 | DRG 563 ==
LOC: ER 18:16 → TELE3 23:41 → MEDSURG3 08-17 13:15
PROVIDERS: ADMIT Nurse Practitioner Acute Care
PROC: B2211ZZ Computerized Tomography (CT Scan) of Multiple Coronary Arteries using Low Osmolar Contrast (ICD-10-PCS; principal; 2018-08-16)
DX: S29.011A Strain of muscle and tendon of front wall of thorax, initial encounter (principal); I10 Essential (primary) hypertension; F43.10 Post-traumatic stress disorder, unspecified; E05.90 Thyrotoxicosis, unspecified without thyrotoxic crisis or storm; F60.0 Paranoid personality disorder
CPT/HCPCS: 36415; 70030-TC; 71045; 83735; 84100; 84443; 85025; 85730; 93005; 93307; A4663; G0378; J1650

== ENCOUNTER 2018-08-31 20:37 | Emergency (ER) | payer MEDICARE, OTHER ==
[~2018-08-31] VITALS: Ht 177.8 cm; Wt 66.2 kg
--- NOTE | 2018-08-31 20:50 | NUR ---
Dr. Kim at bedside for MSE.
[2018-08-31] MEDS ORDERED: TDAP DIPH,PERTUSS,TET VAC/PF 0.5 ML DISP.SYRIN IM ONE ×2 (21:00→21:07)
[2018-08-31] MEDS ORDERED: MORPHINE SULFATE 4 MG/1 ML DISP.SYRIN ONE (21:14)
[2018-08-31] MEDS ORDERED: MORPHINE SULFATE 4 MG/1 ML DISP.SYRIN IM ONE (21:15)
--- NOTE | 2018-08-31 22:30 | NUR ---
Pt refusing to leave. Called Security for assistance.
--- NOTE | 2018-08-31 22:52 | NUR ---
Patient given written and verbal discharge instructions. Patient verbalizes understanding of instructions. Patient is ambulatory with steady gait, crutches in hand, escorted by security. Refuses offer of half-way placement. Patient given list of available shelters in surrounding area. Food provided. VSS, no acute signs of distress, all belongings taken.
== END 2018-08-31 22:55 | disposition home or self-care (01) ==
LOC: ER 20:37
DX: S00.81XA Abrasion of other part of head, initial encounter (principal); R07.89 Other chest pain; M25.561 Pain in right knee; I10 Essential (primary) hypertension; F17.200 Nicotine dependence, unspecified, uncomplicated; Y04.2XXA Assault by strike against or bumped into by another person, initial encounter; Y93.89 Activity, other specified; Y92.89 Other specified places as the place of occurrence of the external cause; Y99.8 Other external cause status
CPT/HCPCS: 71045; 73564; 90471; 90715; 93005; 96372; 99283; J2270; A4663

== ENCOUNTER 2018-09-04 00:02 | Emergency (ER) | payer MEDICARE, OTHER ==
[~2018-09-04] VITALS: Ht 177.8 cm; Wt 66.2 kg
--- NOTE | 2018-09-04 01:10 | NUR ---
Pt out of ER for CT.
--- NOTE | 2018-09-04 01:18 | NUR ---
Pt back to ER from CT.
--- NOTE | 2018-09-04 02:43 | NUR ---
Patient discharged to home in stable conditon. Pt states "not homeless, staying with friend". Written and verbal after care instructions given. Patient verbalizes understanding of instructions. Pt out of ER with steady gait, no acute signs of distress, VSS, all belongings taken.
[2018-09-04 02:45] VITALS: BP 116/81
== END 2018-09-04 02:45 | disposition home or self-care (01) ==
LOC: ER 00:06
DX: F07.81 Postconcussional syndrome (principal); M62.830 Muscle spasm of back; I10 Essential (primary) hypertension; F17.200 Nicotine dependence, unspecified, uncomplicated
CPT/HCPCS: 70450; A4663

== ENCOUNTER 2018-09-05 08:40 | Emergency (ER) | payer MEDICARE, OTHER ==
--- NOTE | 2018-09-05 10:39 | NUR ---
9:00am DEBBIE Pollock informed this SW that patient had returned to the ED this morning after being discharged from the ED last night. RN stated that patient was asking to meet with a SW. 9:15am: SW arrived to the ED, met with DEBBIE Pollock and discussed the case. Maris stated that patient was waiting to meet with hospital healthcare facility administrator Idalia Barrett, after he claims he spoke with him a few days ago. Maris stated that he is now claiming to be homeless, which he denied during his admission last night. Maris stated that patient does not want to see a doctor or does not want to be seen in the ED. Maris stated that she provided the patient with the homeless resource packet, and also provided him with breakfast. SW then met with the patient, who told this SW that he was waiting to meet with Idalia HOLLIDAY informed Child Development Teacher Anderson. 10:00am: This SW and Child Development Teacher Anderson met with the patient. Patient once again stated that he was here to meet with Idalia Barrett to discuss some concerns. Patient claims he spoke with Idalia Barrett a few days ago, and was now back to follow-up with him. Child Development Teacher Anderson informed the patient that Idalia Barrett was not available today. Patient stated that he would wait, but Child Development Teacher Anderson once again explained to him that Idalia Barrett would not be available today, but that he could follow-up with him at a later time. This SW asked patient if there was anything else that MIYA or Anderson could assist him with at this time, and patient stated there wasn't anything else he needed at this time. MIYA and Anderson ended the conversation by letting patient know that he could stay in the ED lobby for a little while if he wanted to. Patient was in agreement and stated he would make a couple of phone calls before he leaves.
== END 2018-09-05 09:03 | disposition left against medical advice (07) ==
LOC: ER 08:40
DX: Z53.21 Procedure and treatment not carried out due to patient leaving prior to being seen by health care provider (principal)

== ENCOUNTER 2018-09-07 02:41 | Emergency (ER) | payer MEDICARE, OTHER ==
[~2018-09-07] VITALS: Ht 177.8 cm; Wt 66.2 kg
--- NOTE | 2018-09-07 03:02 | NUR ---
Dr. Zafar at bedside for MSE.
[2018-09-07] MEDS ORDERED: IBUPROFEN 600 MG TABLET ONE (03:12)
[2018-09-07] MEDS ORDERED: ONDANSETRON ODT 4 MG TAB.RAPDIS ONE ×2 (03:14→03:16)
[2018-09-07] MEDS ORDERED: IBUPROFEN 600 MG TABLET PO ONE (03:15)
[2018-09-07] MEDS ORDERED: HYDROCODONE/APAP 10-325 MG TABLET PO ONE (03:15)
--- NOTE | 2018-09-07 03:15 | NUR ---
Xray at bedside.
[2018-09-07] MEDS ORDERED: HYDROCODONE/APAP 10-325 MG TABLET ONE (03:19)
--- NOTE | 2018-09-07 04:28 | NUR ---
Patient given written and verbal discharge instructions. Patient verbalizes understanding of instructions. Patient is ambulatory with steady gait. Pt provided sandwich and juice per pt request. Pt requests penitentiary placement, in waiting room awaiting psych social worker in AM. Patient given list of available shelters in surrounding area.
== END 2018-09-07 04:55 | disposition home or self-care (01) ==
LOC: ER 02:47
DX: M54.5 Low back pain (principal); M79.671 Pain in right foot; M79.672 Pain in left foot; M79.641 Pain in right hand; R51 Headache; R07.9 Chest pain, unspecified; I10 Essential (primary) hypertension; F17.200 Nicotine dependence, unspecified, uncomplicated; Z76.5 Malingerer [conscious simulation]
CPT/HCPCS: 72100; 73130; 73630; A4663; Q0162

== ENCOUNTER 2018-10-11 22:44 | Emergency (ER) | payer MEDICARE, OTHER ==
[~2018-10-11] VITALS: Ht 177.8 cm; Wt 68.0 kg
--- NOTE | 2018-10-12 01:46 | NUR ---
DR MORGAN INTO EVAL PATIENT
[2018-10-12] MEDS ORDERED: KETOROLAC TROMETHAMINE 30 MG INJ IM ONE (02:00)
--- NOTE | 2018-10-12 02:00 | NUR ---
PROVIDED MEAL FOR PATIENT
[2018-10-12] MEDS ORDERED: KETOROLAC TROMETHAMINE 15 MG INJ ONE (02:04)
[2018-10-12 02:11] VITALS: BP 118/89
--- NOTE | 2018-10-12 02:11 | NUR ---
Patient given written and verbal discharge instructions. Patient verbalizes understanding of instructions. Patient is ambulatory with steady gait. Refuses offer of group home placement. Patient given list of available shelters in surrounding area.
== END 2018-10-12 02:13 | disposition home or self-care (01) ==
LOC: ER 22:46
DX: M79.671 Pain in right foot (principal); M79.672 Pain in left foot; I10 Essential (primary) hypertension; F17.200 Nicotine dependence, unspecified, uncomplicated; F12.10 Cannabis abuse, uncomplicated; F15.10 Other stimulant abuse, uncomplicated
CPT/HCPCS: 96372; 99283; J1885; A4663

== ENCOUNTER 2019-02-10 01:19 | Emergency (ER) | payer MEDICARE, OTHER ==
[~2019-02-10] VITALS: Ht 177.8 cm; Wt 69.9 kg
[2019-02-10] MEDS ORDERED: CEFTRIAXONE 500 MG VIAL IM ONE (02:00)
[2019-02-10] MEDS ORDERED: HYDROCODONE/APAP 10-325 MG TABLET PO ONE (02:00)
[2019-02-10] MEDS ORDERED: CEFTRIAXONE 500 MG VIAL ONE (02:03)
[2019-02-10] MEDS ORDERED: HYDROCODONE/APAP 10-325 MG TABLET ONE (02:03)
[2019-02-10] MEDS ORDERED: LIDOCAINE HCL 1% 20 ML VIAL ONE (02:04)
--- NOTE | 2019-02-10 02:14 | NUR ---
PATIENT SEEN AND TREATED NO ADV. RXN. NOTED D/C WITH F/U INSTRUCTIONS.
[2019-02-10 02:15] VITALS: BP 158/90
== END 2019-02-10 02:15 | disposition home or self-care (01) ==
LOC: ER 01:23
DX: N45.1 Epididymitis (principal); I10 Essential (primary) hypertension; F14.10 Cocaine abuse, uncomplicated; F15.10 Other stimulant abuse, uncomplicated; F17.200 Nicotine dependence, unspecified, uncomplicated
CPT/HCPCS: 96372; 99283; J0696; J3490; A4663

== ENCOUNTER 2019-02-27 07:19 | Emergency (ER) | payer MEDICARE, OTHER ==
[~2019-02-27] VITALS: Ht 177.8 cm; Wt 68.9 kg
--- NOTE | 2019-02-27 07:36 | NUR ---
pt ambulating in steady gait. A&O x4. c/o rash and bug bites on LUE and left chest. c/o itching and pain that started last night. redness and skin lesions noted on said sites. pt able to move extremities freely. pain does not radiate per pt. speech clear and able to make needs known / follow commands. Breathing even and unlabored. Denies any SOB. pulses palpable. denies any / GI distress. fall precautions implemented. bed low, s/r up x2
--- NOTE | 2019-02-27 07:40 | NUR ---
ERMD at bedside for MSE
[2019-02-27 09:04] LABS: *BILIRUBIN,URIN NEGATIVE (NEGATIVE); *BLOOD, URINE NEGATIVE (NEGATIVE); *CLARITY,URINE CLEAR (CLEAR); *COLOR,URINE YELLOW (YELLOW); *KETONES,URINE NEGATIVE (NEGATIVE); *UROBILINOGEN,URINE 0.2 E.U./dl (NORMAL); LEUKOCYTE ESTERASE ,URINE NEGATIVE (NEGATIVE); NITRITE, URINE NEGATIVE (NEGATIVE); PH,URINE 5.5 (5.0-8.0); UGLUCOSE NEGATIVE (NEGATIVE)
[2019-02-27] MEDS ORDERED: KETOROLAC TROMETHAMINE 15 MG INJ ONE (09:16)
[2019-02-27 09:23] VITALS: BP 143/97
[2019-02-27] MEDS ORDERED: KETOROLAC TROMETHAMINE 15 MG INJ IM ONE (09:30)
--- NOTE | 2019-02-27 09:31 | NUR ---
Patient discharged to home in stable conditon. Written and verbal after care instructions given. Patient verbalizes understanding of instructions.
== END 2019-02-27 09:31 | disposition home or self-care (01) ==
LOC: ER 07:21
DX: B35.6 Tinea cruris (principal); I10 Essential (primary) hypertension; F17.200 Nicotine dependence, unspecified, uncomplicated; F14.10 Cocaine abuse, uncomplicated; F15.10 Other stimulant abuse, uncomplicated; Z76.0 Encounter for issue of repeat prescription
CPT/HCPCS: 81001; 96372; 99283; J1885; A4663

== ENCOUNTER 2019-09-18 16:59 | Emergency (ER) | payer MEDICARE, OTHER ==
[~2019-09-18] VITALS: Ht 177.8 cm; Wt 71.7 kg
[2019-09-18] MEDS ORDERED: HYDROCODONE/APAP 5-325MG TABLET ONE (17:14)
[2019-09-18] MEDS ORDERED: HYDROCODONE/APAP 5-325MG TABLET PO ONE (17:15)
--- NOTE | 2019-09-18 17:29 | NUR ---
Extra pillows provided. Comfort and safety measures maintained.
--- NOTE | 2019-09-18 18:27 | NUR ---
Patient is resting comfortably on gurney with eyes closed, pending CT scan results and disposition.
--- NOTE | 2019-09-18 19:26 | NUR ---
Patient ate dinner tray with good appetite. Patient discharged to home in stable condition and steady gait. Written and verbal after care instructions given to patient. Patient verbalizes understanding & compliance of instructions. Stressed follow up or return to ER for worsening s/s.
--- NOTE | 2019-09-18 19:30 | NUR ---
Patient wants narcotic prescription. MD is aware. Patient is upset & cursing our doctor. Security assistance was called to escort this patient.
== END 2019-09-18 19:32 | disposition home or self-care (01) ==
LOC: ER 17:10
DX: S16.1XXA Strain of muscle, fascia and tendon at neck level, initial encounter (principal); S29.012A Strain of muscle and tendon of back wall of thorax, initial encounter; S09.90XA Unspecified injury of head, initial encounter; S39.012A Strain of muscle, fascia and tendon of lower back, initial encounter; W10.0XXA Fall (on)(from) escalator, initial encounter; Y92.521 Bus station as the place of occurrence of the external cause; F17.200 Nicotine dependence, unspecified, uncomplicated; F15.20 Other stimulant dependence, uncomplicated; F14.20 Cocaine dependence, uncomplicated; Z59.0 Homelessness; M50.322 Other cervical disc degeneration at C5-C6 level; I10 Essential (primary) hypertension
CPT/HCPCS: 70450; 72072; 72125; A4663

== ENCOUNTER 2020-12-04 02:55 | Emergency (ER) | payer OTHER ==
[~2020-12-04] VITALS: Ht 177.8 cm; Wt 70.3 kg
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
[2020-12-04] MEDS ORDERED: LIDO30AD10 TD (03:45)
--- NOTE | 2020-12-04 03:53 | NUR ---
Patient discharged to home in stable condition. A/O x4, denies any pain/discomfort. Written and verbal after care instructions given. Patient verbalizes understanding of instructions. Stressed follow up or return to ER for worsening s/s. Steady gait.
[2020-12-04 03:54] VITALS: BP 172/97
== END 2020-12-04 03:52 | disposition home or self-care (01) ==
LOC: ER 02:58
DX: M54.5 Low back pain (principal); Z76.0 Encounter for issue of repeat prescription; I10 Essential (primary) hypertension; F43.10 Post-traumatic stress disorder, unspecified; F90.9 Attention-deficit hyperactivity disorder, unspecified type; Z91.81 History of falling
CPT/HCPCS: A4663